=== PATIENT | male | born 2005 | race Caucasian/White ===

== ENCOUNTER 2025-03-18 14:56 | Emergency (ER) | payer OTHER, SELFPAY ==
[2025-03-18 15:01] VITALS: BP 134/77; PULSE 77; RESP 16; TEMP 36.4; O2SAT 98; BMI 27.4
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
== END 2025-03-18 15:25 | disposition home or self-care (01) ==
PROVIDERS: Emergency Provider Emergency Medicine Emergency Medical Services
DX: S09.90XA Unspecified injury of head, initial encounter (principal); Y04.2XXA Assault by strike against or bumped into by another person, initial encounter; Y93.9 Activity, unspecified; Y92.9 Unspecified place or not applicable; Y99.9 Unspecified external cause status; Z87.820 Personal history of traumatic brain injury
CPT/HCPCS: 99281; 99282